=== PATIENT | female | born 1960 | race American Indian/Alaskan Native ===

== ENCOUNTER 2018-03-25 17:08 | Emergency (ER) | payer BC ==
[2018-03-25 16:54] VITALS: BP 125/50
[2018-03-25 17:09] LABS: CHLORIDE,CL 103 mmol/L (101-111); SODIUM,NA 138 mmol/L (135-145)
--- NOTE | 2018-03-25 17:09 | EDM.PDOC ---
ED HPI GENERAL MEDICAL PROBLEM - General Chief Complaint: Chest Pain Stated Complaint: chest pain Time Seen by Provider: 03/25/18 16:57 Source of Information: Reports: Patient, Provider History Limitations: Reports: No Limitations - History of Present Illness INITIAL COMMENTS - FREE TEXT/NARRATIVE: This 57 yo female patient was sent to the ED from the [facility] due to chest pain. The patient's pain started about 30 minutes prior to her reporting to the [facility] (the patient reports her pain started at about 1400 today). The provider (Dr. Alaniz) reported that the patient has left sided chest pain radiating to the back with nausea. The patient's family has a history of cardiac problems. The patient was given 4 baby aspirin while at the Clinic. Dr. Alaniz reports that her EKG was normal with no ST elevation. The patient's symptoms had resolved prior to the call from Dr. Alaniz. The patient refused ambulance transport and was brought to the ED. The patient reported that she has been having intermittent similar symptoms with the last episode being in October. Onset: Today Onset Date: 03/25/18 Onset Time: 14:00 Duration: Minutes: (30), Resolved Prior to Arrival Location: Reports: Chest (left sided chest pain radiating to her back) Quality: Reports: Ache, Dull Severity: Moderate Improves with: Reports: None Worsens with: Reports: None Context: Reports: Other Associated Symptoms: Reports: Chest Pain Right Neck Pain Score (Numeric/FACES): 2 - Related Data Allergies Allergy/AdvReac Type Severity Reaction Status Date / Time codeine Allergy Nausea Verified 03/25/18 16:46 Home Meds: Home Meds Acetaminophen [Non-Aspirin] 975 mg PO Q6HR PRN 04/05/14 [History] Ibuprofen [Motrin] 400 mg PO Q6HR PRN 04/05/14 [History] Loratadine [Claritin] 10 mg PO DAILY 04/05/14 [History] Multivitamin with Minerals [Multiple Vitamin] 1 tab PO DAILY 04/05/14 [History] metFORMIN [Glucophage XR] 500 mg PO DAILY 03/25/18 [History] Past Medical History HEENT History: Reports: Impaired Vision - Past Surgical History Female Surgical History: Reports: Breast Biopsy, Hysterectomy Social & Family History - Family History Family Medical History: Noncontributory - Tobacco Use Smoking Status *Q: Never Smoker Second Hand Smoke Exposure: No - Caffeine Use Caffeine Use: Reports: Coffee - Recreational Drug Use Recreational Drug Use: No ED ROS GENERAL - Review of Systems Review Of Systems: ROS reveals no pertinent complaints other than HPI. ED EXAM, GENERAL - Physical Exam Exam: See Below Exam Limited By: No Limitations General Appearance: Alert, WD/WN, Moderate Distress Eye Exam: Bilateral Eye: EOMI, Normal Inspection, PERRL Ears: Normal External Exam, Normal Canal, Hearing Grossly Normal, Normal TMs Nose: Normal Inspection, Normal Mucosa, No Blood Throat/Mouth: Normal Inspection, Normal Lips, Normal Teeth, Normal Gums, Normal Oropharynx, Normal Voice, No Airway Compromise Head: Atraumatic, Normocephalic Neck: Normal Inspection, Supple, Non-Tender, Full Range of Motion Respiratory/Chest: No Respiratory Distress, Lungs Clear, Normal Breath Sounds, No Accessory Muscle Use, Chest Non-Tender Cardiovascular: Normal Peripheral Pulses, Regular Rate, Rhythm, No Edema, No Gallop, No JVD, No Murmur, No Rub GI/Abdominal: Normal Bowel Sounds, Soft, Non-Tender, No Organomegaly, No Distention, No Abnormal Bruit, No Mass, Other (obese) (Female) Exam: Deferred Rectal (Female) Exam: Deferred Back Exam: Normal Inspection, Full Range of Motion, NT Extremities: Normal Inspection, Normal Range of Motion, Non-Tender, Normal Capillary Refill, No Pedal Edema Neurological: Alert, Oriented, CN II-XII Intact, Normal Cognition, Normal Gait, Normal Reflexes, No Motor/Sensory Deficits Psychiatric: Normal Affect, Normal Mood Skin Exam: Warm, Dry, Intact, Normal Color, No Rash Lymphatic: No Adenopathy Course - Vital Signs Last Recorded V/S: Last Vital Signs Temp 36.2 C 03/25/18 16:46 Pulse 66 03/25/18 16:46 Resp 20 03/25/18 16:46 BP 125/50 L 03/25/18 16:46 Pulse Ox 99 03/25/18 16:46 - Orders/Labs/Meds Orders: Active Orders 24 hr Category Date Time Status EKG Documentation Completion [RC] URGENT Care 03/25/18 16:36 Active Labs: Laboratory Tests 03/25/18 03/25/18 03/25/18 Range/Units 16:43 16:43 16:44 WBC 6.8 (5.0-10.0) 10^3/uL RBC 4.77 (4.2-5.4) 10^6/uL Hgb 14.3 (12.0-16.0) g/dL Hct 42.9 (37.0-47.0) % MCV 89.9 (80-100) fL MCH 30.0 (27.0-34.0) pg MCHC 33.3 (33.0-35.0) g/dL Plt Count 226 (150-450) 10^3/uL Neut % (Auto) 58.3 (42.2-75.2) % Lymph % (Auto) 33.6 (20.5-50.1) % [place] % (Auto) 6.8 (2-8) % Eos % (Auto) 0.9 L (1.0-3.0) % Baso % (Auto) 0.4 (0.0-1.0) % Sodium 138 (135-145) mmol/L Potassium 3.7 (3.6-5.0) mmol/L Chloride 103 (101-111) mmol/L Carbon Dioxide 27.0 (21.0-31.0) mmol/L Anion Gap 11.7 BUN 13 (7-18) mg/dL Creatinine 0.7 (0.6-1.3) mg/dL Est Cr Clr Drug Dosing 70.98 mL/min Estimated GFR (MDRD) > 60 BUN/Creatinine Ratio 18.57 Glucose 96 (74-105) mg/dL POC Glucose 91 (70-105) mg/dl Calcium 9.0 (8.4-10.2) mg/dl Total Bilirubin 1.2 H (0.2-1.0) mg/dL AST 23 (10-42) IU/L ALT 24 (10-60) IU/L Alkaline Phosphatase 82 (42-121) IU/L Troponin I < 0.02 (0.00-0.02) ng/ml Total Protein 7.8 (6.7-8.2) g/dl Albumin 4.0 (3.2-5.5) g/dl Globulin 3.8 Albumin/Globulin Ratio 1.05 05/24/18 Range/Units 18:05 WBC (5.0-10.0) 10^3/uL RBC (4.2-5.4) 10^6/uL Hgb (12.0-16.0) g/dL Hct (37.0-47.0) % MCV (80-100) fL MCH (27.0-34.0) pg MCHC (33.0-35.0) g/dL Plt Count (150-450) 10^3/uL Neut % (Auto) (42.2-75.2) % Lymph % (Auto) (20.5-50.1) % [place] % (Auto) (2-8) % Eos % (Auto) (1.0-3.0) % Baso % (Auto) (0.0-1.0) % Sodium (135-145) mmol/L Potassium (3.6-5.0) mmol/L Chloride (101-111) mmol/L Carbon Dioxide (21.0-31.0) mmol/L Anion Gap BUN (7-18) mg/dL Creatinine (0.6-1.3) mg/dL Est Cr Clr Drug Dosing mL/min Estimated GFR (MDRD) BUN/Creatinine Ratio Glucose (74-105) mg/dL POC Glucose (70-105) mg/dl Calcium (8.4-10.2) mg/dl Total Bilirubin (0.2-1.0) mg/dL AST (10-42) IU/L ALT (10-60) IU/L Alkaline Phosphatase (42-121) IU/L Troponin I < 0.02 (0.00-0.02) ng/ml Total Protein (6.7-8.2) g/dl Albumin (3.2-5.5) g/dl Globulin Albumin/Globulin Ratio Departure - Departure Time of Disposition: 18:44 Disposition: Home, Self-Care 01 Condition: Fair Clinical Impression: Nonspecific chest pain Instructions: Nonspecific Chest Pain Forms: ED Department Discharge Care Plan Goals: The patient was advised of the examination, lab, EKG and x-ray results during the visit. The patient was encouraged to follow-up with her primary care facility for continued evaluation (stress test) and treatment. If the patient has any additional symptoms or concerns, the patient should either visit her primary care facility or return to the emergency department. - My Orders Last 24 Hours: My Active Orders 03/25/18 16:36 EKG Documentation Completion [RC] URGENT - Assessment/Plan Last 24 Hours: My Active Orders 03/25/18 16:36 EKG Documentation Completion [RC] URGENT
--- NOTE | 2018-03-25 17:16 | CR ---
Clinical history: 57-year-old female chest pain. Interpretation: No acute cardiopulmonary abnormality. Normal cardiac silhouette and bony thorax. Reasonable inspiratory effort obese female without atelect asis or collapse. No alveolar edema or dependent effusion. No lung mass, hilar lymphadenopathy or focal lobar pneumonia. No pneumothorax.
== END 2018-03-25 18:56 | disposition home or self-care (01) ==
LOC: DL.ED 17:08
DX: R07.9 Chest pain, unspecified (principal); Z88.5 Allergy status to narcotic agent; Z79.84 Long term (current) use of oral hypoglycemic drugs
CPT/HCPCS: 36415; 71045; 80053; 82962; 84484; 85025; 93005; 93010; 99285

== ENCOUNTER 2021-08-13 13:51 | Emergency (ER) | payer BC, OTHER ==
--- NOTE | 2021-08-13 13:54 | EDM.PDOC ---
ED HPI GENERAL MEDICAL PROBLEM - General Chief Complaint: Upper Extremity Injury/Pain Stated Complaint: IN BY AMBULANCE Time Seen by Provider: 08/13/21 13:51 Source of Information: Reports: Patient, Old Records, RN, RN Notes Reviewed History Limitations: Reports: No Limitations - History of Present Illness INITIAL COMMENTS - FREE TEXT/NARRATIVE: Pt arrives from home by ambulance with c/o left wrist pain and left knee pain. Patient was carrying garbage down some steps at home at about 1230HRS and missed the last step, falling on to the concrete on her left side. Patient helped up by grandson and limped to car, decided could not drive and called for ambulance. Rates pain 05/11 to left forearm, states it 'feels broke'. Declined IV pain medication per cut filer. She did not strike her head, and denies neck pain or injury. Onset: Today, Sudden Onset Date: 08/13/21 Onset Time: 12:30 Duration: Constant Location: Reports: Upper Extremity, Left, Lower Extremity, Left Quality: Reports: Ache Severity: Severe Improves with: Reports: Immobilization Worsens with: Reports: Movement Context: Reports: Other (Fall) Associated Symptoms: Reports: No Other Symptoms Treatments RESEARCH SPEC: Reports: Acetaminophen left arm Pain Score (Numeric/FACES): 7 - Related Data Allergies Allergy/AdvReac Type Severity Reaction Status Date / Time codeine Allergy Nausea Verified 08/13/21 14:09 Home Meds: Home Meds Acetaminophen [Non-Aspirin] 975 mg PO Q6HR PRN 04/05/14 [History] Ibuprofen [Motrin] 400 mg PO Q6HR PRN 04/05/14 [History] Loratadine [Claritin] 10 mg PO DAILY 04/05/14 [History] Multivitamin with Minerals [Multiple Vitamin] 1 tab PO DAILY 04/05/14 [History] metFORMIN [Glucophage XR] 500 mg PO DAILY 03/25/18 [History] Calcium Carbonate [Calcium] 500 mg PO DAILY 08/13/21 [History] Past Medical History HEENT History: Reports: Impaired Vision Endocrine/Metabolic History: Reports: Diabetes, Type II, Obesity/BMI 30+ - Past Surgical History Female Surgical History: Reports: Breast Biopsy, Hysterectomy Social & Family History - Family History Family Medical History: No Pertinent Family History - Caffeine Use Caffeine Use: Reports: Coffee - Living Situation & Occupation Living situation: Reports: , with Spouse Review of Systems - Review of Systems Review Of Systems: Comprehensive ROS is negative, except as noted in HPI. ED EXAM, GENERAL - Physical Exam Exam: See Below Exam Limited By: No Limitations General Appearance: Alert, WD/WN, No Apparent Distress Eye Exam: Bilateral Eye: Normal Inspection Nose: Normal Inspection, No Blood Throat/Mouth: Normal Voice, Other (Atraumatic) Head: Atraumatic, Normocephalic Neck: Normal Inspection, Non-Tender, Full Range of Motion Respiratory/Chest: No Respiratory Distress, Lungs Clear, Normal Breath Sounds, No Accessory Muscle Use, Chest Non-Tender Cardiovascular: Normal Peripheral Pulses, Regular Rate, Rhythm GI/Abdominal: Non-Tender Back Exam: Full Range of Motion. No: Vertebral Tenderness Extremities: Normal Capillary Refill, Arm Pain (Left wrist acutely tender, mild soft tissue swelling, bruising. Skin is intact. Forearm compartments are soft.), Leg Pain (Left knee tenderness with mild bruising, ROM limited due to pain.), Limited Range of Motion (Left wrist, and left knee). No: Onesimo's Sign, Increased Warmth, Mottled, Pallor, Redness Neurological: Alert, Oriented, CN II-XII Intact, Normal Cognition, No Motor/Sensory Deficits Psychiatric: Normal Affect, Normal Mood Skin Exam: Warm, Dry, Intact, Normal Color, No Rash ED TRAUMA EXTREMITY PROCEDURES - Splinting Left Upper Extremity Splint Site: Left wrist Pre-Procedure NV Status: Normal Post-Procedure NV Status: Normal Splint Material: Fiberglass Splint Design: Volar Applied & Form Fitted By: Nurse Provider Post-Splint Application NV Check: NV Status Normal, Good Position Complications: No Left Lower Extremity Splint Site: Left knee Pre-Procedure NV Status: Normal Post-Procedure NV Status: Normal Splint Material: Velcro Splint Design: Knee Immobilizer Applied & Form Fitted By: Nurse Provider Post-Splint Application NV Check: NV Status Normal, Good Position Complications: No Course - Vital Signs Last Recorded V/S: Last Vital Signs Temp 97.8 F 08/13/21 14:00 Pulse 86 08/13/21 14:00 Resp 20 08/13/21 14:00 BP 132/74 08/13/21 14:00 Pulse Ox 96 08/13/21 14:00 - Orders/Labs/Meds Meds: Medications Discontinued Medications Generic Name Dose Route Start Last Admin Trade Name Satinder PRN Reason Stop Dose Admin Acetaminophen 650 mg 08/13/21 13:58 08/13/21 14:21 Acetaminophen 325 Mg Tab PO 08/13/21 13:59 650 mg NOW ONE Administration Ondansetron HCl 4 mg 08/13/21 13:58 08/13/21 14:20 Ondansetron 4 Mg Tab.Dis PO 08/13/21 13:59 4 mg ONETIME ONE Administration Departure - Departure Time of Disposition: 16:07 Disposition: DC/Tfer to Acute Hospital 02 Condition: Fair Clinical Impression: Closed fracture of left distal radius Qualifiers: Encounter type: initial encounter Fracture morphology: unspecified fracture morphology Qualified Code(s): S52.502A - Unspecified fracture of the lower end of left radius, initial encounter for closed fracture Closed fracture of left tibial plateau Qualifiers: Encounter type: initial encounter Qualified Code(s): S82.142A - Displaced bicondylar fracture of left tibia, initial encounter for closed fracture Fall as cause of accidental injury at home as place of occurrence Qualifiers: Encounter type: initial encounter Qualified Code(s): W19.XXXA - Unspecified fall, initial encounter; Y92.009 - Unspecified place in unspecified non- institutional (private) residence as the place of occurrence of the external cause - Discharge Information *PRESCRIPTION DRUG MONITORING PROGRAM REVIEWED*: Not Applicable *COPY OF PRESCRIPTION DRUG MONITORING REPORT IN PATIENT ADI: Not Applicable Forms: ED Department Discharge, Interfacility Transfer EMTALA Sepsis Event Note (ED) - Focused Exam Vital Signs: Vital Signs Temp Pulse Resp BP Pulse Ox 08/13/21 14:00 97.8 F 86 20 132/74 96
[2021-08-13] MEDS ORDERED: Ondansetron 4 MG Tab.DIS PO ONE (13:58)
[2021-08-13] MEDS ORDERED: Acetaminophen 325 MG Tab PO ONE (13:58)
[2021-08-13 14:09] VITALS: BP 132/74; PULSE 86
--- NOTE | 2021-08-13 14:28 | CR ---
EXAMINATION: Knee 3V Lt SEX: Female AGE: 60 years CLINICAL HISTORY: 60-year-old female injured in fall (injury to left knee and left wrist). Interpretation: 1. Acute nondisplaced FRACTURE tibial plateau laterally (1 view only) extends intra-articularly. 2. Homogeneous normal bone mineral density for age and gender. 3. Old healed fracture deformity proximal left fibula. 4. No joint effusion, other fracture, dislocation or radiopaque loose joint body left knee. 5. No foreign bodies.
--- NOTE | 2021-08-13 14:30 | CR ---
EXAMINATION: Wrist Comp Min 3V Lt SEX: Female AGE: 60 years CLINICAL HISTORY: 60-year-old female injured in fall (left wrist and knee). Interpretation: Abnormal. 1. Badly comminuted, mildly impacted, distal RADIAL FRACTURE with some dorsal angulation deformity. Surrounding soft tissue swelling (STS). No radiocarpal dislocation. 2. No sign of other distal long bone radial/ulnar fracture. 3. No carpal fracture or dislocation. Metacarpals left hand similarly intact. 4. No foreign bodies.
[2021-08-13] MEDS ORDERED: Acetaminophen/oxyCODONE 325-5 MG Tab PO ONE (16:19)
== END 2021-08-13 16:46 ==
LOC: DL.ED 13:51
DX: S82.142A Displaced bicondylar fracture of left tibia, initial encounter for closed fracture (principal); S52.502A Unspecified fracture of the lower end of left radius, initial encounter for closed fracture; E11.9 Type 2 diabetes mellitus without complications; E66.9 Obesity, unspecified; Z68.38 Body mass index [BMI] 38.0-38.9, adult; Z88.5 Allergy status to narcotic agent; Z79.84 Long term (current) use of oral hypoglycemic drugs; W10.9XXA Fall (on) (from) unspecified stairs and steps, initial encounter; Y92.009 Unspecified place in unspecified non-institutional (private) residence as the place of occurrence of the external cause
CPT/HCPCS: 29125; 73110-LT; 73562-LT; 99284-25; A9270-GY

== ENCOUNTER 2024-10-08 20:44 | Emergency (ER) | payer BC, OTHER ==
[2024-10-08 22:18] VITALS: BP 117/78; PULSE 69
[2024-10-08] MEDS ORDERED: Polymyxin B/Trimethoprim 10 ML Bottle EYELF ONE (22:30)
[2024-10-09] MEDS ORDERED: Polymyxin B/Trimethoprim 10 ML Bottle ONE (00:10)
== END 2024-10-08 22:35 | disposition home or self-care (01) ==
LOC: DL.ED 20:44
DX: H10.89 Other conjunctivitis (principal); E11.9 Type 2 diabetes mellitus without complications; E66.9 Obesity, unspecified; Z90.710 Acquired absence of both cervix and uterus; Z88.5 Allergy status to narcotic agent; Z79.84 Long term (current) use of oral hypoglycemic drugs; Z79.899 Other long term (current) drug therapy; Z68.34 Body mass index [BMI] 34.0-34.9, adult
CPT/HCPCS: 99282; A9270

== ENCOUNTER 2025-02-07 15:56 | Emergency (ER) | payer BC, OTHER ==
[2025-02-07 16:38] VITALS: BP 148/74; PULSE 74
== END 2025-02-07 16:48 | disposition home or self-care (01) ==
LOC: DL.ED 15:56
DX: M54.12 Radiculopathy, cervical region (principal); E11.9 Type 2 diabetes mellitus without complications; E66.9 Obesity, unspecified; Z88.6 Allergy status to analgesic agent; Z79.899 Other long term (current) drug therapy; Z86.16 Personal history of COVID-19; Z90.710 Acquired absence of both cervix and uterus
CPT/HCPCS: 99283